=== PATIENT | female | born 1945 | race African-American/Black ===

== ENCOUNTER 2018-06-25 06:15 | Day surgery (SDC) | payer MEDICARE, MEDICAID ==
--- NOTE | 2018-06-20 15:30 | Pre-Procedure Note/Attestation ---
Pre-Procedure Note/Attestation Complete Prior to Procedure Planned Procedure: right Procedure Narrative: phaco with IOL Indications for Procedure Pre-Operative Diagnosis: cataract Attestation I attest that I discussed the nature of the procedure; its benefits; risks and complications; and alternatives (and the risks and benefits of such alternatives ), prior to the procedure, with the patient (or the patient's legal education courses sales representative). I attest that, if there was a reasonable possibility of needing a blood transfusion, the patient (or the patient's legal education courses sales representative) was given the [facility] standardized written summary, pursuant to the Gibson [place] Blood Safety Act ([place] Health and Safety Code # 1645, as amended). I attest that I re-evaluated the patient just prior to the surgery and that there has been no change in the patient's H&P, except as documented below: PAULA CADET Jun 20, 2018 15:30
[2018-06-25] VITALS (9 sets, daily range): BP systolic 130–155; BP diastolic 60–74
[~2018-06-25] VITALS: Ht 144.8 cm; Wt 54.4 kg
[2018-06-25] MEDS ORDERED: Pilocarpine 1% Opth 15ml Soln ONE (07:00)
[2018-06-25] MEDS ORDERED: Dexamethasone 4mg/ml vial ONE (07:00)
[2018-06-25] MEDS ORDERED: Proparacaine 0.5% Opth Soln 15ml RIGHT EYE ONE (07:00)
[2018-06-25] MEDS ORDERED: Pred Forte 1% Opth Susp 1ml ONE (07:00)
[2018-06-25] MEDS ORDERED: Tetracaine 0.5% Opth 4ml Soln RIGHT EYE ONE (07:00)
[2018-06-25] MEDS ORDERED: Akten 3.5% 1ml Btl RIGHT EYE ONE (07:00)
[2018-06-25] MEDS ORDERED: Maxitrol Opth Oint 3.5gm ONE (07:00)
[2018-06-25] MEDS: Diclofenac Sod 0.1% Op Soln RIGHT EYE SCH ×4 (07:15→08:02)
[2018-06-25] MEDS: Tobramycin Op Soln 0.3% 5ml RIGHT EYE SCH ×3 (07:49→08:02)
[2018-06-25] MEDS: Tropicamide 1% Opth 15ml Soln RIGHT EYE SCH ×3 (07:49→08:02)
[2018-06-25] MEDS: Cyclopentolate 1% Opth Sol 2ml RIGHT EYE SCH ×3 (07:49→08:02)
[2018-06-25] MEDS: Phenylephrine 10% Opth Soln 5ml RIGHT EYE SCH ×3 (07:49→08:02)
[2018-06-25] MEDS ORDERED: OMEPRAZOLE40 M1 ORAL (08:09)
[2018-06-25] MEDS ORDERED: GABAPENTIN100 MG ORAL (08:09)
[2018-06-25] MEDS ORDERED: MELOXICAM7.5 MG PO (08:09)
[2018-06-25] MEDS ORDERED: HYDROCHLOROTHIA25 MG ORAL (08:09)
[2018-06-25] MEDS ORDERED: KLOR-CON 88 MEQ ORAL (08:09)
[2018-06-25] MEDS ORDERED: ENALAPRIL MALEA10 MG ORAL (08:09)
[2018-06-25] MEDS ORDERED: COREG3.125 MG ORAL (08:09)
[2018-06-25] MEDS ORDERED: OXYCODONE-ACET1 EAC3 ORAL (08:09)
[2018-06-25] MEDS ORDERED: TRAMADOL HCL50 MG ORAL (08:09)
[2018-06-25] MEDS ORDERED: LR 1000ml ONE (09:00)
[2018-06-25] MEDS ORDERED: Sterile Water Irrig 1000ml IRRIG ONE (09:00)
[2018-06-25] MEDS ORDERED: NS Irrig 1000ml ONE (09:00)
[2018-06-25] MEDS ORDERED: BSS 500ml btl ONE (09:03)
[2018-06-25] MEDS ORDERED: Vancomycin 1gm inj IVPB ONE (09:03)
[2018-06-25] MEDS ORDERED: EPINEPHrine 1mg/1ml Amp ONE (09:03)
[2018-06-25] MEDS ORDERED: Sodium Hyaluronate 14 mg/ml 0.85ml ONE (09:04)
[2018-06-25] MEDS ORDERED: Povidone-Iodine 5% opth solution ONE (09:04)
[2018-06-25] MEDS ORDERED: BSS 15ml BTL ONE (09:04)
[2018-06-25] MEDS ORDERED: Midazolam 2mg/2ml Inj ONE (09:05)
[2018-06-25] MEDS ORDERED: fentaNYL 100 mcg/2 mL IV ONE (09:05)
--- NOTE | 2018-06-25 09:23 | Anethesia Preoperative Eval ---
Anesthesia Pre-op PMH/ROS General Date of Evaluation: Jun 25, 2018 Time of Evaluation: 09:00 Anesthesiologist: ajay ASA Score: ASA 2 Mallampati Score Class I : Soft palate, uvula, fauces, pillars visible Class II: Soft palate, uvula, fauces visible Class III: Soft palate, base of uvula visible Class IV: Only hard plate visible Mallampati Classification: Class II Surgeon: richi Diagnosis: cataraccct Surgical Procedure: cataract extraction Anesthesia History: none Family History: no anesthesia problems Allergies: Coded Allergies: No Known Allergies (Unverified , 06/25/18) Medications: see eMAR Patient NPO?: Yes NPO Date: Jun 24, 2018 NPO Time: 2100 Past Medical History Cardiovascular: Reports: HTN Pulmonary: Denies: asthma, COPD, TARAS, other Gastrointestinal/Genitourinary: Reports: GERD; Denies: CRI, ESRD, other Neurologic/Psychiatric: Denies: dementia, CVA, depression/anxiety, TIA, other Endocrine: Denies: DM, hypothyroidism, steroids, other HEENT: Reports: cataract (L) Hematology/Immune: Denies: anemia, DVT, bleeding disorder, other Musculoskeletal/Integumentary: Denies: OA, RA, DJD, DDD, edema, other PSxH Narrative: no complication Anesthesia Pre-op Phys. Exam Physician Exam Last Vital Signs Date Time Temp Pulse Resp B/P (MAP) Pulse Ox O2 Delivery O2 Flow Rate FiO2 06/25/18 07:59 97.0 54 18 146/74 100 Room Air 97.0 Constitutional: NAD Neurologic: CN 2-12 intact Cardiovascular: RRR Respiratory: CTA Gastrointestinal: S/NT/ND Airway Exam Mallampati Classification 2 Mallampati Score: Class II ROM: full Dentures: upper, lower Anesthesia Pre-op A/P Studies Pre-op Studies: EKG - sr Risk Assessment & Plan Plan: mac Pre-Antibiotics Drug: Corie Gonzalez CRNA Jun 25, 2018 09:23
[2018-06-25] MEDS ORDERED: Carbachol 0.01% Op Soln 1.5ml vial ONE (10:28)
--- NOTE | 2018-06-25 15:47 | 48 Hour Post Anesthesia Eval ---
Post Anesthesia Evaluation Procedure: cataract extraction right eye Date of Evaluation: Jun 25, 2018 Time of Evaluation: 15:47 Blood Pressure Systolic: 130 0: 68 Pulse Rate: 54 Respiratory Rate: 14 Temperature (Fahrenheit): 97.0 O2 Sat by Pulse Oximetry: 98 Airway: patent Nausea: No Vomiting: No Hydration Status: adequate Cardiopulmonary Status: stable Mental Status/LOC: patient returned to baseline Post-Anesthesia Complications: none Follow-up care needed: N/A Corie Camarena CRNA Jun 25, 2018 15:47
--- NOTE | 2018-06-25 15:48 | Immediate Post-Op Evaluation ---
Immediate Post-Op Evalulation Immediate Post-Op Evalulation Procedure: cataract extraction right eye Date of Evaluation: Jun 25, 2018 Time of Evaluation: 10:24 IV Fluids: 400 Blood Pressure Systolic: 155 Blood Pressure Diastolic: 66 Pulse Rate: 70 Respiratory Rate: 14 O2 Sat by Pulse Oximetry: 98 Temperature (Fahrenheit): 97.2 Pain Score (1-10): 0 Nausea: No Vomiting: No Complications none Patient Status: awake, reacts, patent Hydration Status: adequate Drug: none JumanariCorie raemy CRNA Jun 25, 2018 15:48
--- NOTE | 2018-06-27 15:21 | Brief Operative Note ---
Immediate Post Operative Note Operative Note Chief Complaint: blurry vision Pre-op Diagnosis: cataract, OD Procedure: phaco with IOL Post-op Diagnosis: pseudophakia Post-op Diagnosis: same as pre-op Findings: consistent w/pre-op dx studies Surgeon: Rosalie Anesthesiologist: Nicol Specimen: none Complications: none Condition: stable Fluids: LR Estimated Blood Loss: none Drains: none Implant(s) used?: Yes Kenji Wiggins MD Jun 27, 2018 15:21
--- NOTE | 2018-06-27 15:22 | Operative Note - PDOC ---
Operative Note Operative Note Date of Operation/Procedure: Jun 25, 2018 Chief Complaint: blurry vision Pre-op Diagnosis: cataract, OD Procedure: phaco with IOL Post-op Diagnosis: pseudophakia Post-op Diagnosis: same as pre-op Operative Findings: consistent w/pre-op dx studies Surgeon: Rosalie Anesthesiologist: Nicol Specimen: none Complications: none Condition: stable Fluids: LR Estimated Blood Loss: none Drains: none Implant(s) used?: Yes Indications for Procedure cataract Description of Procedure This patient has been complaining visually significant cataract in the affected eye with the best corrected visual acuity under moderate glare conditions worse. The patient complains of difficulties with glare in performing activities of daily living and wants to manage personal affairs with comfort and accuracy and see well enough to move with safety at home and outdoors. The risks, benefits and alternatives of the procedure were discussed with the patient in the office prior to scheduling surgery. All questions from the patient were answered after the surgical procedure was explained in detail. The risks of the procedure as explained to the patient include, but are not limited to, pain, infection, bleeding, loss of vision, retinal detachment, need for further surgery, loss of lens nucleus, double vision, etc. Alternative procedures were discussed which include, to do nothing or seek a second opinion. Informed consent for this procedure was obtained from the patient. The patient was referred to a primary care physician for a cardiopulmonary clearance prior to surgery, after proper evaluation was done patient was properly scheduled for outpatient surgery. The patient was brought to the operating room where the anesthesiologist established I.V. lines and cardiac monitoring leads. Mild intravenous sedation was administered. The patient was then prepared with a 5% solution of povidone -iodine to the conjunctival fornix and lashes, and a 5% solution of povidone- iodine to the lids and periorbital skin. The patient was then draped in the usual sterile fashion. A lid speculum was then placed in the operative eye. A keratome blade was then used to create a biplanar incision into the anterior chamber. Viscoelastics was then instilled into the anterior chamber. A capsulorrhexis was then fashioned with an utrata forceps followed by a BSS and a G 27 cannula were then used to hydrodissect and hydro delineate the lens. Paracentesis incision was made at 3 o'clock with sharp blade. The phacoemulsification unit, after being properly adjusted and tested, was then used to emulsify the nucleus. Residual cortical material was aspirated with the irrigation and aspiration unit. Healon was then instilled into the anterior chamber. The corneal wound was then enlarged to the size of the optic with the hetal keratome blade. The intraocular lens was then inspected for right power and size and thought to be satisfactory. Then the lens was gently placed in the capsular bag. Positioning within the capsular bag was confirmed by direct visualization. Optic centration was accomplished with a Sinskey hook. Viscoelastics was removed from the anterior chamber using the irrigation and aspiration unit. The corneal wound was then tested for leaks and none were found. The lid speculum were then removed. Sponge and needle counts were correct. An eye patch and shield were placed over the operative eye. The patient was taken to the recovery room in stable condition. There were no complications. The patient tolerated the procedure well. The patient was then transferred to the ambulatory surgery unit in stable and satisfactory condition , was given detailed written instructions and asked to follow up in the office the next day. Kenji Wiggins MD Jun 27, 2018 15:22
== END 2018-06-25 11:50 | disposition home or self-care (01) ==
LOC: SUR 06:15
DX: H25.9 Unspecified age-related cataract (principal); I10 Essential (primary) hypertension; K21.9 Gastro-esophageal reflux disease without esophagitis
CPT/HCPCS: 66984; J0171; J1100; J2250; J3010; J3370; V2632; 94003; 94150

== ENCOUNTER 2018-08-27 05:25 | Day surgery (SDC) | payer MEDICARE, MEDICAID ==
--- NOTE | 2018-08-22 15:00 | Pre-Procedure Note/Attestation ---
Pre-Procedure Note/Attestation Complete Prior to Procedure Planned Procedure: left Procedure Narrative: phaco with IOL Indications for Procedure Pre-Operative Diagnosis: cataract Attestation I attest that I discussed the nature of the procedure; its benefits; risks and complications; and alternatives (and the risks and benefits of such alternatives ), prior to the procedure, with the patient (or the patient's legal primary care sales representative). I attest that, if there was a reasonable possibility of needing a blood transfusion, the patient (or the patient's legal primary care sales representative) was given the [facility] standardized written summary, pursuant to the [place] Blood Safety Act ([place] Health and Safety Code # 1645, as amended). I attest that I re-evaluated the patient just prior to the surgery and that there has been no change in the patient's H&P, except as documented below: Kenji Wiggins MD Aug 22, 2018 15:00
--- NOTE | 2018-08-22 15:02 | Opthalmology H&P ---
Ophthalmology H&P H&P Chief Complaint: decreased vision in left eye HPI Vision Affects Ability to: read, focus/use eyes together, manage personal affairs HPI Narrative blurry vision Exam Visual Acuity: OD: 20/40 OS: 20/80 Tension: OD: 18 OS;1 7 Eye Exam: normal OU: external exam, palpebral fissure-width, marginal reflex distance, levator function, corneas, anterior chambers; findings: lens - OD: IOL OS: ns, fundus exam Assessment/Plan Diagnosis: (1) Nuclear sclerosis of left eye Treatment Plan: cataract extraction w/ lens implant Goals of Treatment: improvement of vision, enhance quality of life Attestation Attestation The risks and benefits of the surgery as well as alternative procedures were explained to the patient in detail. Kenji Wiggins MD Aug 22, 2018 15:02
[~2018-08-27] VITALS: Ht 147.3 cm; Wt 49.9 kg
[2018-08-27] VITALS (8 sets, daily range): BP systolic 140–173; BP diastolic 72–88
[~2018-08-27 05:25] MED LIST: COREG3.125 MG ORAL; ENALAPRIL MALEA10 MG ORAL; GABAPENTIN100 MG ORAL; HYDROCHLOROTHIA25 MG ORAL; KLOR-CON 88 MEQ ORAL; MELOXICAM7.5 MG PO; OMEPRAZOLE40 M1 ORAL; OXYCODONE-ACET1 EAC3 ORAL; TRAMADOL HCL50 MG ORAL
[2018-08-27] MEDS: Phenylephrine 10% Opth Soln 5ml LEFT EYE SCH ×3 (05:50→06:10)
[2018-08-27] MEDS: Diclofenac Sod 0.1% Op Soln LEFT EYE SCH ×3 (05:53→06:17)
[2018-08-27] MEDS: Tropicamide 1% Opth 15ml Soln LEFT EYE SCH ×3 (05:53→06:16)
[2018-08-27] MEDS: Tobramycin Op Soln 0.3% 5ml LEFT EYE SCH ×3 (05:53→06:17)
[2018-08-27] MEDS: Cyclopentolate 1% Opth Sol 2ml LEFT EYE SCH ×3 (05:54→06:17)
[2018-08-27 06:17] LABS: BASOPHILS % (AUTO) 1.4 % (0.0-2.0); EOSINOPHILS % (AUTO) 1.8 % (0.0-3.0); HEMATOCRIT 36.6 % (37.0-47.0); LYMPHOCYTES % (AUTO) 28.1 % (20.0-45.0); MEAN CORPUSCULAR VOLUME 95 FL (80-99); NEUTROPHILS % (AUTO) 61.8 % (45.0-75.0); PLATELET COUNT 254 K/UL (150-450); RED BLOOD COUNT 3.85 M/UL (4.20-5.40); RED CELL DISTRIBUTION WIDTH 11.5 % (11.6-14.8); WHITE BLOOD COUNT 7.6 K/UL (4.8-10.8)
[2018-08-27 06:38] LABS: ANION GAP 7 mmol/L (5-15); BLOOD UREA NITROGEN 14 mg/dL (7-18); CARBON DIOXIDE 29 MMOL/L (21-32); CHLORIDE 106 MMOL/L (98-107); CREATININE 0.7 MG/DL (0.55-1.30); POTASSIUM 3.7 MMOL/L (3.5-5.1); SODIUM 142 MMOL/L (136-145)
[2018-08-27] MEDS ORDERED: Tetracaine 0.5% Opth 4ml Soln LEFT EYE ONE (07:00)
[2018-08-27] MEDS ORDERED: Proparacaine 0.5% Opth Soln 15ml LEFT EYE ONE (07:00)
[2018-08-27] MEDS ORDERED: Akten 3.5% 1ml Btl LEFT EYE ONE (07:00)
[2018-08-27] MEDS ORDERED: Carbachol 0.01% Op Soln 1.5ml vial ONE ×2 (07:17→07:55)
[2018-08-27] MEDS ORDERED: Lidocaine 4% Amp ONE (07:17)
[2018-08-27] MEDS ORDERED: EPINEPHrine 1mg/1ml Amp ONE (07:17)
[2018-08-27] MEDS ORDERED: BSS 500ml btl ONE (07:18)
[2018-08-27] MEDS ORDERED: acetaZOLAMIDE 500mg Inj ONE (07:18)
[2018-08-27] MEDS ORDERED: Sodium Hyaluronate 14 mg/ml 0.85ml ONE (07:19)
[2018-08-27] MEDS ORDERED: Povidone-Iodine 5% opth solution ONE (07:19)
[2018-08-27] MEDS ORDERED: BSS 15ml BTL ONE (07:19)
[2018-08-27] MEDS ORDERED: Midazolam 2mg/2ml Inj ONE (07:29)
[2018-08-27] MEDS ORDERED: LR 1000ml ONE (07:30)
[2018-08-27] MEDS ORDERED: Propofol 200mg/20ml IV ONE (07:30)
[2018-08-27] MEDS ORDERED: NS Irrig 1000ml ONE (07:30)
[2018-08-27] MEDS ORDERED: Sterile Water Irrig 1000ml IRRIG ONE (07:30)
[2018-08-27] MEDS ORDERED: Dexamethasone 4mg/ml vial ONE (08:00)
[2018-08-27] MEDS ORDERED: Pilocarpine 2% Opth 15ml Soln ONE (08:00)
[2018-08-27] MEDS ORDERED: Pred Forte 1% Opth Susp 1ml ONE (08:00)
[2018-08-27] MEDS ORDERED: Maxitrol Opth Oint 3.5gm ONE (08:00)
[2018-08-27] MEDS ORDERED: Tetracaine 0.5% Opth 4ml Soln ONE (08:00)
[2018-08-27] MEDS ORDERED: LR 1000ml 1,000 ML IVLG SCH (08:02)
--- NOTE | 2018-08-27 08:02 | Anethesia Preoperative Eval ---
Anesthesia Pre-op PMH/ROS General Date of Evaluation: Aug 27, 2018 Time of Evaluation: 07:35 Anesthesiologist: Crystal ASA Score: ASA 3 Mallampati Score Class I : Soft palate, uvula, fauces, pillars visible Class II: Soft palate, uvula, fauces visible Class III: Soft palate, base of uvula visible Class IV: Only hard plate visible Mallampati Classification: Class II Surgeon: Rosalie Diagnosis: Cataract left eye Surgical Procedure: Extraction of cataract with IOL Allergies: Coded Allergies: No Known Allergies (Unverified , 06/25/18) Medications: see eMAR Patient NPO?: Yes NPO Date: Aug 26, 2018 NPO Time: 17:00 Past Medical History Cardiovascular: Reports: HTN; Denies: CAD, [place], valve dz, arrhythmia, other Pulmonary: Denies: asthma, COPD, TARAS, other Gastrointestinal/Genitourinary: Denies: GERD, CRI, ESRD, other Neurologic/Psychiatric: Denies: dementia, CVA, depression/anxiety, TIA, other Endocrine: Denies: DM, hypothyroidism, steroids, other HEENT: Reports: cataract (L), cataract (R); Denies: glaucoma, KLETSEL DEHE WINTUN (L), KLETSEL DEHE WINTUN (R), other Hematology/Immune: Denies: anemia, DVT, bleeding disorder, other Musculoskeletal/Integumentary: Reports: DJD; Denies: OA, RA, DDD, edema, other PMH Narrative: HTN, DJD PSxH Narrative: Cataract right eye, TKR Anesthesia Pre-op Phys. Exam Physician Exam Last Vital Signs Date Time Temp Pulse Resp B/P (MAP) Pulse Ox O2 Delivery O2 Flow Rate FiO2 08/27/18 06:22 Room Air 08/27/18 06:02 97.9 72 18 150/83 100 Constitutional: NAD Neurologic: CN 2-12 intact Cardiovascular: RRR, no M/R/G Respiratory: CTA Gastrointestinal: S/NT/ND Airway Exam Mallampati Score: Class II MO: full ROM: full Dentures: upper, lower Anesthesia Pre-op A/P Labs Hematology Test 08/27/18 06:10 White Blood Count 7.6 K/UL (4.8-10.8) Red Blood Count 3.85 M/UL (4.20-5.40) L Hemoglobin 12.0 G/DL (12.0-16.0) Hematocrit 36.6 % (37.0-47.0) L Mean Corpuscular Volume 95 FL (80-99) Mean Corpuscular Hemoglobin 31.2 PG (27.0-31.0) H Mean Corpuscular Hemoglobin Concent 32.9 G/DL (32.0-36.0) Red Cell Distribution Width 11.5 % (11.6-14.8) L Platelet Count 254 K/UL (150-450) Mean Platelet Volume 7.7 FL (6.5-10.1) Neutrophils (%) (Auto) 61.8 % (45.0-75.0) Lymphocytes (%) (Auto) 28.1 % (20.0-45.0) Monocytes (%) (Auto) 7.0 % (1.0-10.0) Eosinophils (%) (Auto) 1.8 % (0.0-3.0) Basophils (%) (Auto) 1.4 % (0.0-2.0) Chemistry Test 08/27/18 06:10 Sodium Level 142 MMOL/L (136-145) Potassium Level 3.7 MMOL/L (3.5-5.1) Chloride Level 106 MMOL/L (98-107) Carbon Dioxide Level 29 MMOL/L (21-32) Anion Gap 7 mmol/L (5-15) Blood Urea Nitrogen 14 mg/dL (7-18) Creatinine 0.7 MG/DL (0.55-1.30) Estimat Glomerular Filtration Rate mL/min (>60) Glucose Level 148 MG/DL (74-106) H Calcium Level 9.0 MG/DL (8.5-10.1) Studies Pre-op Studies: EKG - SR Risk Assessment & Plan Assessment: Class 3 patient for cataract extraction Plan: MAC Status Change Before Surgery: No Pre-Antibiotics Drug: None Gibson Rojas MD Aug 27, 2018 08:02
--- NOTE | 2018-08-27 08:03 | Immediate Post-Op Evaluation ---
Immediate Post-Op Evalulation Immediate Post-Op Evalulation Procedure: Extraction of cataract with IOL left eye Date of Evaluation: Aug 27, 2018 Time of Evaluation: 09:05 IV Fluids: 600 Blood Pressure Systolic: 173 Blood Pressure Diastolic: 79 Pulse Rate: 77 Respiratory Rate: 18 O2 Sat by Pulse Oximetry: 99 Temperature (Fahrenheit): 97.3 Pain Score (1-10): 0 Nausea: No Vomiting: No Complications No complication Patient Status: awake, patent, none Hydration Status: adequate Drug: None Gibson Rojas MD Aug 27, 2018 08:03
[2018-08-27] MEDS ORDERED: fentaNYL 100 mcg/2 mL IV PRN (08:15)
--- NOTE | 2018-08-27 09:04 | 48 Hour Post Anesthesia Eval ---
Post Anesthesia Evaluation Procedure: Extraction of cataract with IOL left eye Date of Evaluation: Aug 27, 2018 Time of Evaluation: 09:30 Blood Pressure Systolic: 165 0: 80 Pulse Rate: 81 Respiratory Rate: 18 O2 Sat by Pulse Oximetry: 99 Airway: patent Nausea: No Vomiting: No Pain Intensity: 0 Hydration Status: adequate Cardiopulmonary Status: Stable Mental Status/LOC: patient returned to baseline Follow-up Care/Observations: As per surgery Post-Anesthesia Complications: No anesthetic complication Follow-up care needed: N/A Gibson Rojas MD Aug 27, 2018 09:04
--- NOTE | 2018-08-28 19:45 | Pre-op HX & Phy Repo 2 SIG ---
DATE OF ADMISSION: 08/27/2018 PRESURGICAL INTERNAL MEDICINE HISTORY AND PHYSICAL REASON FOR EVALUATION: I was asked by Dr. Kenji Wiggins to see this 73-year-old female, who is going for elective surgery on the left eye. The patient has a nuclear sclerotic cataract left eye. Please see Ophthalmology History and Physical by Dr. Kenji Wiggins. The patient was evaluated. Chart was reviewed at [facility] outpatient procedure department. PAST MEDICAL HISTORY/REVIEW OF SYSTEMS: Remarkable for history of hypertension, diabetes mellitus. No heart attack. No chest pain or palpitation. Denies respiratory problem, asthma, or bronchitis. No history of GI bleeding. No hepatitis. No history of heart problem. The patient has degenerative joint disease and osteoarthritis of knee. No renal failure. No anemia. PAST SURGICAL HISTORY: Left knee replacement in June 2017. FAMILY HISTORY: Mother from cancer and father had a stroke. ALLERGIES: Not known. PRESENT MEDICATIONS: Include enalapril, hydrochlorothiazide, potassium supplement, tramadol, vitamin B12, Centrum, Coreg 3.125, meloxicam and omeprazole 40 mg daily. SOCIAL HISTORY: Denies history of smoke or alcohol habits. No street drugs. PHYSICAL EXAMINATION: GENERAL: The patient is alert, small framed, BMI 23.0 kg/m2. VITAL SIGNS: Blood pressure 150/83, temperature 97.9, pulse 72 and regular, O2 saturation 100% on room air. SKIN: Clear and warm. No rashes. No open wounds. LYMPH NODES: Not enlarged. HEENT: Head normocephalic. Eyes, per Dr. Kenji Wiggins. Mouth, clear and moist. No dentures. NECK: Supple. No jugular venous distention. Carotids artery +2. Trachea midline. CHEST: No deformity or asymmetry. LUNGS: Clear to auscultation to percussion. No rales or rhonchi. HEART: Regular. No ectopy. No murmur. No S3 or S4. ABDOMEN: Soft, benign. No palpable mass. No rebound. EXTREMITIES: Degenerative joint disease knee. Scar on left knee after total knee replacement. No edema or calf tenderness. GENITOURINARY TRACT: No dysuria. CVA is nontender. NERVOUS SYSTEM: No nystagmus. No tremors. LABORATORY AND DIAGNOSTIC DATA: CBC, white blood cells 7.6, hemoglobin 12.0, hematocrit 36.1. Sodium 142, potassium 3.7, BUN 14, creatinine 0.7, blood sugar 148, calcium 9.0. Electrocardiogram, normal sinus rhythm. Normal ECG. The patient did not ear or drink from last night. IMPRESSION: 1. Cataract, left eye. 2. Hypertension. 3. Adult-onset diabetes mellitus. 4. GERD. 5. Degenerative joint disease of knee, left total knee replacement. PLAN: Cataract extraction, left eye with intraocular lens implant per Dr. Kenji Wiggins. CONCLUSION: The patient's vital signs stable. ECG is normal. Blood sugar elevated, not on any medications. The patient did not eat or drink from last night. The patient's condition optimized for surgery. Mario Wren M.D. DR: Joseph JOB#: [id number] CC:
--- NOTE | 2018-08-28 20:02 | Brief Operative Note ---
Immediate Post Operative Note Operative Note Chief Complaint: blurry vision Pre-op Diagnosis: cataract, OS Procedure: phaco with IOL Post-op Diagnosis: Pseudophakia Post-op Diagnosis: same as pre-op Surgeon: Rosalie Anesthesiologist: Crystal Anesthesia: MAC Specimen: none Complications: none Condition: stable Fluids: LR Estimated Blood Loss: none Drains: none Implant(s) used?: Yes Kenji Wiggins MD Aug 28, 2018 20:02
--- NOTE | 2018-08-28 20:03 | Operative Note - PDOC ---
Operative Note Operative Note Date of Operation/Procedure: Aug 27, 2018 Chief Complaint: blurry vision Pre-op Diagnosis: cataract, OS Procedure: phaco with IOL Post-op Diagnosis: Pseudophakia Post-op Diagnosis: same as pre-op Surgeon: Rosalie Anesthesiologist: Crystal Anesthesia: MAC Specimen: none Complications: none Condition: stable Fluids: LR Estimated Blood Loss: none Drains: none Implant(s) used?: Yes Indications for Procedure cataract Description of Procedure This patient has been complaining visually significant cataract in the affected eye with the best corrected visual acuity under moderate glare conditions worse. The patient complains of difficulties with glare in performing activities of daily living and wants to manage personal affairs with comfort and accuracy and see well enough to move with safety at home and outdoors. ~~~ The risks, benefits and alternatives of the procedure were discussed with the patient in the office prior to scheduling surgery. All questions from the patient were answered after the surgical procedure was explained in detail. The risks of the procedure as explained to the patient include, but are not limited to, pain, infection, bleeding, loss of vision, retinal detachment, need for further surgery, loss of lens nucleus, double vision, etc. Alternative procedures were discussed which include, to do nothing or seek a second opinion. Informed consent for this procedure was obtained from the patient. The patient was referred to a primary care physician for a cardiopulmonary clearance prior to surgery, after proper evaluation was done patient was properly scheduled for outpatient surgery. The patient was brought to the operating room where the anesthesiologist established I.V. lines and cardiac monitoring leads. Mild intravenous sedation was administered. Using a solution containing 0.75% Marcaine and 2% lidocaine with Wydase, a peribulbar block was administered to the eye. ~The patient was then prepared with a 5% solution of povidone-iodine to the conjunctival fornix and lashes, and a 10% solution of povidone-iodine to the lids and periorbital skin. The patient was then draped in the usual sterile fashion. A lid speculum was then placed in the operative eye. A keratome blade was then used to create a biplanar incision into the anterior chamber. Viscoelastics was then instilled into the anterior chamber. A capsulorrhexis was then fashioned with an utrata forceps. BSS and a G-27 cannula were then used for hydrodissection and hydro delineation of the lens. Paracentesis incision was made at 3 o'clock with sharp blade. The phacoemulsification unit, after being properly adjusted ~and tested, was then used to emulsify the nucleus. Residual cortical material was aspirated with the irrigation and aspiration unit. Healon was then instilled into the anterior chamber. The corneal wound was then enlarged to the size of the optic with the hetal keratome blade. The intraocular lens was then inspected for right ~ power and size and thought to be satisfactory. Then the lens was gently placed in the capsular bag. Positioning within the capsular bag was confirmed by direct visualization. Optic centration was accomplished with a Sinskey hook. Viscoelastics ~was removed from the anterior chamber using the irrigation and aspiration unit. The corneal wound was then tested for leaks and none were found. The lid speculum were then removed. Sponge and needle counts were correct. An eye patch and shield were placed over the operative eye. The patient was taken to the recovery room in stable condition. There were no complications. The patient tolerated the procedure well. The patient was then transferred to the ambulatory surgery unit in stable and satisfactory condition , was given detailed written instructions and asked to follow up ~in the office the next day. Kenji Wiggins MD Aug 28, 2018 20:03
== END 2018-08-27 10:20 | disposition home or self-care (01) ==
LOC: SUR 05:25
DX: H25.12 Age-related nuclear cataract, left eye (principal); I10 Essential (primary) hypertension; E11.9 Type 2 diabetes mellitus without complications; Z96.652 Presence of left artificial knee joint; Z82.3 Family history of stroke; Z80.9 Family history of malignant neoplasm, unspecified; K21.9 Gastro-esophageal reflux disease without esophagitis
CPT/HCPCS: 36415; 66984; 80048; 85025; J0171; J1100; J2250; J2704; J3370; V2632; 94003; 94150